=== PATIENT | male | born 1950 | race Asian ===

== ENCOUNTER → 2017-09-15 | Outpatient (CLI) | payer MEDICARE, MEDICAID ==
[~2017-09-15] MED LIST: OMNIPAQUE 350 MG/ML, 100ML BOTTLE ONE
== END | disposition home or self-care (01) ==
LOC: CFH 08:31
PROVIDERS: ATTEND Internal Medicine
DX: K76.0 Fatty (change of) liver, not elsewhere classified (principal); N28.1 Cyst of kidney, acquired
CPT/HCPCS: 74160; Q9967